=== PATIENT | male | born 1980 | race African-American/Black ===

== ENCOUNTER 2019-07-15 20:55 | Emergency (ER) | payer SELFPAY ==
[~2019-07-15] VITALS: Ht 167.6 cm; Wt 72.6 kg
[2019-07-15 21:13] VITALS: BP 142/94
--- NOTE | 2019-07-15 21:13 | NUR ---
ED Nurse Note: Pt ambulated into ED from home CO right neck pain d/t falling twice at home -- once falling out of bed, the second falling in bathroom. Pt denies hitting head during either fall and denies losing consciousness. Pt reports pain 6/10. Pt also reports pain in feet bilaterally. VSS, not s/s of distress noted. Awaiting erMd
--- NOTE | 2019-07-15 21:14 | NUR ---
ED Nurse Note: ERMD at bedside
--- NOTE | 2019-07-15 21:17 | NUR ---
ED Nurse Note: All medications administered, no s/s of distress noted. VSS. no adverse reactions noted.
--- NOTE | 2019-07-15 21:22 | Emergency Room Report ---
History of Present Illness General Chief Complaint: Neck Injury Source: Patient Present Illness HPI This a 39-year-old male with no past medical history presents with chief complaint of neck pain. He said that earlier this morning he was in bed and he sat up in slip on his blanket. He fell on the ground. He hurt his neck. Most of the pain is the right side of the neck. He also has some injury to his lip. No fever chills but no nausea no vomiting he did not pass out. Pain is mild. Worse with movement. Better with looking straight. No focal deficit. No other injury. He also complained of cough and congestion and hiccuping that started yesterday. No fever or chills. Allergies: Coded Allergies: No Known Allergies (Unverified , 07/15/19) Patient History Past Medical History: see triage record, old chart reviewed Past Surgical History: none Pertinent Family History: none Social History: Denies: smoking Immunizations: other Reviewed Nursing Documentation: PMH: Agreed; PSxH: Agreed Nursing Documentation-PMH Past Medical History: No Stated History Review of Systems Eye: Denies: eye pain, blurred vision ENT: Denies: ear pain, nose congestion, throat swelling Respiratory: Denies: cough, shortness of breath Cardiovascular: Denies: chest pain, palpitations Gastrointestinal: Denies: abdominal pain, diarrhea, nausea, vomiting Musculoskeletal: Denies: back pain, joint pain Skin: Denies: rash Neurological: Denies: headache, numbness Endocrine: Denies: increased thirst, increased urine Hematologic/Lymphatic: Denies: easy bruising All Other Systems: negative except mentioned in HPI Physical Exam Vital Signs Date Time Temp Pulse Resp B/P (MAP) Pulse Ox O2 Delivery O2 Flow Rate FiO2 07/15/19 21:03 99.0 100 19 141/93 (109) 96 Room Air Sp02 EP Interpretation: reviewed, normal General Appearance: well appearing, no apparent distress, alert Head: normocephalic, atraumatic Eyes: bilateral eye PERRL, bilateral eye EOMI ENT: hearing grossly normal, normal pharynx, other - Abrasion to the inner aspect of midline of the lower lip. No laceration. Neck: full range of motion, supple, no meningismus, tender - Mild tenderness to the right lateral aspect of the neck and trapezius muscle. Respiratory: chest non-tender, lungs clear, normal breath sounds Cardiovascular #1: regular rate, rhythm, no murmur Gastrointestinal: normal bowel sounds, non tender, no mass, no organomegaly, no bruit, non-distended Musculoskeletal: back normal, normal range of motion, gait/station normal Psychiatric: mood/affect normal Medical Decision Making Diagnostic Impression: Primary Impression: Injury of neck Qualified Codes: S19.9XXA - Unspecified injury of neck, initial encounter Additional Impressions: Viral illness Abrasion of lip, initial encounter ER Course Patient with soft tissue injury. No other fracture. Nothing to be sutured. It appeared that he has an old cervical injury. He said he plays soccer as a kid. He does not remember any acute trauma. Will discharge home. Other X-Ray Diagnostic Results Other X-Ray Diagnostic Results : X-Ray ordered: C-spine x-rays # of Views/Limited Vs Complete: 3 View Indication: Pain EP Interpretation: Yes Interpretation: no dislocation, no soft tissue swelling, no fractures, other - There is a well-corticated avulsion fracture of the anterior aspect of C5. Impression: No acute disease Electronically Signed by: Thomas Cox MD Last Vital Signs Date Time Temp Pulse Resp B/P (MAP) Pulse Ox O2 Delivery O2 Flow Rate FiO2 07/15/19 21:03 99.0 100 19 141/93 (109) 96 Room Air Status: improved Disposition: HOME, SELF-CARE Condition: Stable Scripts Guaifenesin/Dextromethorphan (Robitussin Cough-Chest Dm Liq) 237 Ml Liquid 10 ML PO Q6HR, #237 ML Prov: Thomas Cox MD 07/15/19 Ibuprofen* (MOTRIN*) 600 Mg Tablet 600 MG ORAL THREE TIMES A DAY, #30 TAB 0 Refills Prov: Thomas Cox MD 07/15/19 Additional Instructions: Follow-up with your doctor in 7 days. Return if symptoms worsen. Thomas Cox MD Jul 15, 2019 21:22
--- NOTE | 2019-07-15 21:24 | NUR ---
ED Nurse Note: ERMD at bedside
--- NOTE | 2019-07-15 21:39 | Diagnostic Imaging Report ---
EXAM: XR Cervical Spine, 2 or 3 Views CLINICAL HISTORY: TRAUMA TECHNIQUE: Frontal and lateral views of the cervical spine. COMPARISON: No relevant prior studies available. FINDINGS: Alignment is anatomic perivertebral body heights are maintained. Small age-indeterminate fracture fragment anterior/inferior endplate of C5. The dens is partially obscured.
--- NOTE | 2019-07-15 21:39 | NUR ---
ED Nurse Note: Xray at bedside
[2019-07-15] MEDS ORDERED: IBUPROFEN600 MG ORAL (21:40)
[2019-07-15] MEDS ORDERED: ROBITUSSIN COU237 M2 PO (21:40)
[2019-07-15 21:53] VITALS: BP 139/97
--- NOTE | 2019-07-15 21:53 | NUR ---
ER DISCHARGE NOTE: Patient is cleared to be discharged home per ERMD, pt is aox4, on room air, with stable vital signs. pt was given dc and prescription instructions, pt was able to verbalize understanding, pt id band removed. pt is able to ambulate with steady gait. pt took all belongings.
== END 2019-07-15 21:53 | disposition home or self-care (01) ==
LOC: EMR 21:07
DX: S19.9XXA Unspecified injury of neck, initial encounter (principal); B34.9 Viral infection, unspecified; S00.511A Abrasion of lip, initial encounter; W19.XXXA Unspecified fall, initial encounter; Y92.9 Unspecified place or not applicable
CPT/HCPCS: 72040; 99283